=== PATIENT | male | born 1985 ===

== ENCOUNTER 2016-11-23 23:15 | Emergency (ER) | payer SELFPAY ==
[2016-11-23 23:20] VITALS: BMI 29.9
--- NOTE | 2016-11-23 23:34 | ED PDOC ---
Arrival/HPI - General Chief Complaint: GI Problem Time Seen by Provider: 11/23/16 23:29 Historian: Patient - History of Present Illness Narrative History of Present Illness (Text): 11/23/16 23:30 31 y/o male, pmh including chronic gastritis, nkda, c/o epigastric abdominal pain with nausea and vomiting x 2 hours. Pt. stated that he had 6 cans of beer with liquor tonight, had chicken parmesan at the same time, started to have indigestion, nausea and vomiting, no chest pain or shortness of breath, no diarrhea, no lower abdominal or periumbilical pain, no dizziness, no urinary symptoms, no abdominal surgical history, no flank pain, no other medical or psychological complaints. Past Medical History - Provider Review Nursing Documentation Reviewed: Yes - Psychiatric Hx Substance Use: Yes (quit 2 years ago) Family/Social History - Physician Review Nursing Documentation Reviewed: Yes Family/Social History: Unknown Family HX Smoking Status: Light Smoker < 10 Cigarettes Daily Hx Alcohol Use: Yes Frequency of alcohol use: Daily Hx Substance Use: Yes (quit 2 years ago) Substance used: cocaine, marijuana Allergies/Home Meds Allergies/Adverse Reactions: Allergies No Known Allergies Allergy (Verified 11/23/16 23:18) Review of Systems - Review of Systems Constitutional: absent: Fatigue, Fevers Eyes: absent: Vision Changes ENT: absent: Hearing Changes Respiratory: absent: Cough Cardiovascular: absent: Chest Pain Gastrointestinal: Abdominal Pain, Nausea, Vomiting. absent: Diarrhea Genitourinary Male: absent: Dysuria Musculoskeletal: absent: Arthralgias Skin: absent: Rash, Pruritis, Skin Lesions, Laceration, Abscess, Ulcer, Cellulitis Neurological: absent: Headache, Dizziness, Focal Weakness, Gait Changes, Speech Changes, Facial Droop, Disequilibrium, Seizure Endocrine: absent: Diaphoresis, Polyuria Hemo/Lymphatic: absent: Adenopathy, Easy Bleeding Psychiatric: absent: Anxiety, Depression Physical Exam Vital Signs Reviewed: Yes Vital Signs Temp Pulse Resp BP Pulse Ox 11/24/16 01:22 95 H 16 98 11/24/16 01:20 98.0 F 95 H 16 118/94 H 98 11/23/16 23:20 98.4 F 97 H 22 172/103 H 100 Temperature: Afebrile Blood Pressure: Hypertensive Pulse: Regular Respiratory Rate: Normal Appearance: Positive for: Well-Appearing, Non-Toxic, Uncomfortable Pain Distress: Moderate Mental Status: Positive for: Alert and Oriented X 3 - Systems Exam Head: Present: Atraumatic, Normocephalic Pupils: Present: PERRL Extroacular Muscles: Present: EOMI Conjunctiva: Present: Normal Mouth: Present: Moist Mucous Membranes Neck: Present: Normal Range of Motion Respiratory/Chest: Present: Clear to Auscultation, Good Air Exchange. No: Respiratory Distress, Accessory Muscle Use Cardiovascular: Present: Regular Rate and Rhythm, Normal S1, S2. No: Murmurs Abdomen: Present: Tenderness (+epigastric tenderness, no cva tenderness. ), Normal Bowel Sounds. No: Distention, Peritoneal Signs, Rebound, Guarding Back: Present: Normal Inspection. No: CVA Tenderness Upper Extremity: Present: Normal Inspection. No: Cyanosis, Edema Lower Extremity: Present: Normal Inspection. No: Edema Neurological: Present: GCS=15, Speech Normal, Motor Func Grossly Intact, Gait Normal, Memory Normal Skin: Present: Warm, Dry, Normal Color. No: Rashes Psychiatric: Present: Alert, Oriented x 3, Normal Insight, Normal Concentration Medical Decision Making ED Course and Treatment: 11/23/16 23:39 -labs/ua/lipase -IVF/pepcid/zofran -gallbladder sonogram -observe and reassess 11/24/16 00:49 -Sonogram show no cholecystitis but there is fatty liver, discussed with the patient about proper eating habits and avoid drinking alcohol. -Labs are non-significant except K+3.3, elevated LFTs. I ordered potassium chloride 20meq and advised eat more bananas. -Pain completely resolved with the IVF/pepcid and zofran, likely gastritis due to the alcohol, I ordered protonix 40meq po for the patient so this will get him through the morning. -Discharge home with prilosec, avoid drinking alcohol and avoid eating fatty food, follow up with the GI and PMD within 2 days for follow up abdominal sonogram for your fatty liver and possible upper endoscopy for your gastritis, return to the ER for any new or worsening signs or symptoms. - Lab Interpretations Lab Results: 11/23/16 23:47 11/23/16 23:47 Lab Results 11/24/16 00:24: Urine Color Yellow, Urine Appearance Sl cloudy, Urine pH 6.0, Ur Specific Gray 1.025, Urine Protein Trace H, Urine Glucose (UA) Negative, Urine Ketones Negative, Urine Blood Small H, Urine Nitrate Negative, Urine Bilirubin Negative, Urine Urobilinogen 0.2, Ur Leukocyte Esterase Negative, Urine RBC 1 - 3, Urine WBC 0 - 2, Ur Epithelial Cells 0 - 2 11/23/16 23:47: WBC 7.3, RBC 4.95, Hgb 15.1, Hct 43.5, MCV 87.9, MCH 30.5, MCHC 34.7, RDW 12.8, Plt Count 201, MPV 9.6, Gran % 48.3 L, Lymph % (Auto) 39.2 H, Brooks % (Auto) 7.5 H, Eos % (Auto) 3.8, Baso % (Auto) 1.2, Gran # 3.52, Lymph # 2.9, Brooks # 0.6, Eos # 0.3, Baso # 0.09, Sodium 139, Potassium 3.3 L, Chloride 100, Carbon Dioxide 28, Anion Gap 14, BUN 15, Creatinine 0.9, Est GFR ( Amer) > 60, Est GFR (Non-Af Amer) > 60, Random Glucose 136 H, Calcium 9.2, Total Bilirubin 0.6, AST 69 H, ALT 113 H, Alkaline Phosphatase 83, Total Protein 8.1, Albumin 4.5, Globulin 3.7, Albumin/Globulin Ratio 1.2, Lipase 61, Influenza Typ A,B (EIA) Negative for flu a/b I have reviewed the lab results: Yes Interpretation: Abnormal lab values (K+3.3, elevated LFTs) - RAD Interpretation Radiology Orders: 11/23/16 23:34 GALLBLADDER & PANCREAS [US] Stat FINDINGS: Liver: Enlarged, 22.9 cm. Fatty infiltration. No mass. No intrahepatic ductal dilatation. Gallbladder: No gallstones. No wall thickening. No pericholecystic fluid. No sonographic Meyers's sign. Common bile duct: No dilatation. No stones. Pancreas: Obscured by overlying bowel gas. Right kidney: Normal echogenicity. No hydronephrosis. IMPRESSION: 1. No acute findings. 2. Non-acute findings are described above. Thank you for allowing us to participate in the care of your patient. Dictated and Authenticated by: Victor M Lowe MD 11/24/2016 12:05 AM Eastern Time ([place] & [place]) Department Sales Manager: Radiologist - Medication Orders Current Medication Orders: Discontinued Medications Famotidine (Pepcid) 20 mg IVP STAT STA Stop: 11/23/16 23:35 Last Admin: 11/23/16 23:53 Dose: 20 MG IVP Administration Document 11/23/16 23:53 CAST (Rec: 11/23/16 23:[id number] Charges for Administration # of IVP Administrations 1 Ondansetron HCl (Zofran Inj) 4 mg IVP STAT STA Stop: 11/23/16 23:35 Last Admin: 11/23/16 23:52 Dose: 4 MG IVP Administration Document 11/23/16 23:52 CAST (Rec: 11/23/16 23:52 [email or web address] [id number]) Charges for Administration # of IVP Administrations 1 Pantoprazole Sodium (Protonix Ec Tab) 40 mg PO STAT STA Stop: 11/24/16 00:48 Last Admin: 11/24/16 01:22 Dose: 40 MG Potassium Chloride (K-Dur 20 Meq Er Tab) 20 meq PO STAT STA Stop: 11/24/16 00:37 Last Admin: 11/24/16 01:22 Dose: 20 MEQ - PA / SAFETY INSPECTOR / Resident Statement /DO has reviewed & agrees with the documentation as recorded. Disposition/Present on Arrival - Present on Arrival Any Indicators Present on Arrival: No History of DVT/PE: No History of Uncontrolled Diabetes: No Urinary Catheter: No History of Decub. Ulcer: No History Surgical Site Infection Following: None - Disposition Have Diagnosis and Disposition been Completed?: Yes Diagnosis: Fatty liver, Gastritis, Hypokalemia Disposition: HOME/ ROUTINE Disposition Time: 00:51 Patient Plan: Discharge Condition: IMPROVED Discharge Instructions (ExitCare): Gastritis (ED) Print Language: CZECH Additional Instructions: Discharge home with prilosec, avoid drinking alcohol and avoid eating fatty food , follow up with the GI and PMD within 2 days for follow up abdominal sonogram for your fatty liver and possible upper endoscopy for your gastritis, return to the ER for any new or worsening signs or symptoms. Prescriptions: Omeprazole Magnesium [Prilosec Otc] 20 mg PO DAILY #15 tcp Referrals: Dave MYERS,MD Sandra [Medical Doctor] - [place] [facility] [place] [facility] [place] - Follow up with primary Forms: WORK NOTE
[2016-11-24 00:05] LABS: ADD MANUAL DIFF? NO
--- NOTE | 2016-11-24 00:05 | US ---
EXAM: US Abdomen Limited, Right Upper Quadrant. CLINICAL HISTORY: 31 years old, male; Pain; Abdominal pain; Generalized; Additional info: Epigastric pain TECHNIQUE: Real-time ultrasound of the right upper quadrant with image documentation. COMPARISON: No relevant prior studies available. FINDINGS: Liver: Enlarged, 22.9 cm. Fatty infiltration. No mass. No intrahepatic ductal dilatation. Gallbladder: No gallstones. No wall thickening. No pericholecystic fluid. No sonographic Meyers's sign. Common bile duct: No dilatation. No stones. Pancreas: Obscured by overlying bowel gas. Right kidney: Normal echogenicity. No hydronephrosis. IMPRESSION: 1.No acute findings. 2.Non-acute findings are described above.
[2016-11-24 00:15] LABS: BASO # 0.09 K/mm3 (0.0-2.0); BASO % 1.2 % (0.0-3.0); EOS # 0.3 (0.0-0.7); EOS % 3.8 % (1.5-5.0); GRAN # 3.52 (1.4-6.5); GRAN % 48.3 % (50.0-68.0); HEMATOCRIT 43.5 % (42.0-52.0); LYMPH # 2.9 (1.2-3.4); LYMPH % 39.2 % (22.0-35.0); MEAN CELL VOLUME 87.9 fL (80.0-105.0); MEAN CORPUSCULAR HEMOGLOBIN 30.5 pg (25.0-35.0); MEAN CORPUSCULAR HGB CONC 34.7 g/dl (31.0-37.0); MEAN PLATELET VOLUME 9.6 fl (7.0-11.0); MONO # 0.6 (0.1-0.6); MONO % 7.5 % (1.0-6.0); PLATELET COUNT 201 10^3/uL (120.0-450.0); RED CELL DISTRIBUTION WIDTH 12.8 % (11.5-14.5); WHITE BLOOD COUNT 7.3 10^3/ul (4.5-11.0)
[2016-11-24 00:22] LABS: ALB/GLOB RATIO 1.2 (1.1-1.8); ALKALINE PHOSPHATASE 83 U/L (38-133); ALT/SGPT 113 U/L (7-56); AST/SGOT 69 U/L (15-59); BILIRUBIN,TOTAL 0.6 mg/dL (0.2-1.3); BLOOD UREA NITROGEN 15 mg/dL (7-21); CALCIUM 9.2 mg/dL (8.4-10.5); CARBON DIOXIDE 28 mmol/L (21-33); CHLORIDE 100 mmol/L (98-107); GFR AFRICAN-AMERICAN > 60; GLUCOSE,RANDOM 136 mg/dL (70-110); LIPASE 61 U/L (23-300); POTASSIUM 3.3 mmol/L (3.6-5.0); SODIUM 139 mmol/L (132-148); TOTAL PROTEIN 8.1 g/dL (5.8-8.3)
[2016-11-24] MEDS ORDERED: Potassium Chloride 20 mEq ER Tab PO STA (00:36)
[2016-11-24] MEDS ORDERED: Pantoprazole 40 mg EC Tab PO STA (00:47)
[2016-11-24 00:48] LABS: URINE BILIRUBIN NEGATIVE (NEGATIVE); URINE BLOOD SMALL (NEGATIVE); URINE GLUCOSE (UA) NEGATIVE (NEGATIVE); URINE KETONE NEGATIVE (NEGATIVE); URINE LEUKOCYTE ESTERASE NEGATIVE Leu/uL (NEGATIVE); URINE PROTEIN TRACE mg/dL (<30 mg/dL); URINE UROBILINOGEN 0.2 E.U./dL (<1 E.U./dL)
[2016-11-24 00:56] LABS: URINE APPEARANCE SL CLOUDY (CLEAR); URINE COLOR YELLOW (YELLOW)
[2016-11-24 00:59] LABS: URINE EPITHELIAL CELLS 0 - 2 /hpf (0-5); URINE WBC 0 - 2 /hpf (0-6)
[2016-11-24 01:22] VITALS: BP 118/94; PULSE 95; RESP 16; TEMP 98; O2SAT 98
== END 2016-11-24 01:22 | disposition home or self-care (01) ==
LOC: ED 23:15 → MERGE 23:15 → ED 11-24 01:22
DX: K76.0 Fatty (change of) liver, not elsewhere classified (principal); K29.70 Gastritis, unspecified, without bleeding; E87.6 Hypokalemia; F17.210 Nicotine dependence, cigarettes, uncomplicated
CPT/HCPCS: 76705; 80053; 81001; 83690; 85025; 87804; 96374; 96375; 99283; J2405

== ENCOUNTER 2017-10-08 12:57 | Emergency (ER) | payer OTHER ==
[2017-10-08 12:57] VITALS: BMI 29.9
[2017-10-08 13:28] VITALS: TEMP 99; O2SAT 96
--- NOTE | 2017-10-08 13:43 | ED PDOC ---
Arrival/HPI - General Historian: Patient - History of Present Illness Time/Duration: Other (<24 hours) - General Chief Complaint: Abdominal Pain Time Seen by Provider: 10/08/17 13:19 - History of Present Illness Narrative History of Present Illness (Text): 10/08/17 13:43 CC: vomiting and diarrhea 32 M presents with vomiting and diarrhea this morning. Patient states he still drinks a lot and was cooking pork cutlet and may not have cooked it well. Patient states he tried to hold soup down this morning and wasn't able to eat more. Patient was at work today. Patient states he's thirsty, midepigastric and right upper quadrant pain, diarrhea, vomiting. no fever, chills. PMH: chronic gastritis, nkda, c/o epigastric abdominal pain with nausea and vomiting x 2 hours Family/Social History: Unknown Family HX Smoking Status: Light Smoker < 10 Cigarettes Daily Hx Alcohol Use: Yes Frequency of alcohol use: Daily Hx Substance Use: Yes (quit 2 years ago) Substance used: cocaine, marijuana (Eng,Carolyn) Past Medical History - Infectious Disease Hx of Infectious Diseases: None - Gastrointestinal Hx Gastritis: Yes - Psychiatric Hx Substance Use: Yes (quit 2 years ago) - Anesthesia Hx Anesthesia: No Family/Social History - Physician Review Nursing Documentation Reviewed: Yes Family/Social History: Unknown Family HX Smoking Status: Light Smoker < 10 Cigarettes Daily Hx Alcohol Use: Yes Frequency of alcohol use: Daily Hx Substance Use: Yes (quit 2 years ago) Substance used: cocaine, marijuana Allergies/Home Meds Allergies/Adverse Reactions: Allergies No Known Allergies Allergy (Verified 10/08/17 13:25) Home Medications: Home Meds Medication Instructions Recorded Confirmed No Known Home Med 10/08/17 10/08/17 Review of Systems - Physician Review All systems were reviewed & negative as marked: Yes - Review of Systems Constitutional: absent: Fatigue, Weight Change, Fevers Eyes: Normal. absent: Vision Changes, Photophobia, Eye Pain ENT: Normal. absent: Hearing Changes, Tinnitus, TMJ Pain Respiratory: Normal. absent: SOB, Cough, Sputum Cardiovascular: absent: Chest Pain, Palpitations, Edema, Syncope Gastrointestinal: Abdominal Pain, Stool Changes, Diarrhea, Nausea, Vomiting, Appetite Changes. absent: Constipation, Hematochezia, Hematemesis, Anorexia, Food Intolerance Genitourinary Male: absent: Dysuria, Frequency, Hematuria Musculoskeletal: absent: Arthralgias, Back Pain, Neck Pain Skin: absent: Rash, Pruritis, Skin Lesions Neurological: absent: Headache, Dizziness, Focal Weakness Endocrine: absent: Diaphoresis, Polyuria, Polydipsia Hemo/Lymphatic: absent: Adenopathy, Easy Bleeding, Easy Bruising Psychiatric: absent: Anxiety, Depression, Suicidal Ideation Physical Exam Temperature: Afebrile Blood Pressure: Hypertensive Pulse: Tachycardic Respiratory Rate: Normal Appearance: Positive for: Comfortable Pain Distress: Mild Mental Status: Positive for: Alert and Oriented X 3 - Systems Exam Head: Present: Atraumatic, Normocephalic Pupils: Present: PERRL Extroacular Muscles: Present: EOMI Conjunctiva: Present: Normal Mouth: Present: Moist Mucous Membranes Pharnyx: Present: ERYTHEMA Neck: Present: Trachea Midline. No: JVD Respiratory/Chest: Present: Clear to Auscultation, Good Air Exchange. No: Respiratory Distress Cardiovascular: Present: Regular Rate and Rhythm, Normal S1, S2. No: Murmurs Abdomen: Present: Normal Bowel Sounds. No: Tenderness, Distention Upper Extremity: Present: Normal Inspection, Normal ROM, NORMAL PULSES, Capillary Refill < 2s. No: Edema Lower Extremity: Present: Normal Inspection, NORMAL PULSES, Normal ROM, Capillary Refill < 2 s. No: Edema Neurological: Present: GCS=15, CN II-XII Intact, Speech Normal, Motor Func Grossly Intact Psychiatric: Present: Alert, Oriented x 3, Normal Insight, Normal Concentration Vital Signs Temp Pulse Resp BP Pulse Ox 10/08/17 16:58 86 18 152/91 H 96 10/08/17 15:21 94 H 18 156/100 H 96 10/08/17 14:52 100 H 16 96 10/08/17 13:20 99 F 110 H 20 167/119 H 96 Medical Decision Making - Lab Interpretations I have reviewed the lab results: Yes Interpretation: Abnormal lab values ED Course and Treatment: 10/08/17 18:15 cbc cmp lipase abdominal US (Carolyn Knight) Patient Seen With Resident: In agreement with resident note which contains more details about the patient. Patient was seen and evaluated with resident. Came up with plan and treatment together. 32 y/o M p/w abdominal pain, vomiting after alcohol use last night. RUQ tenderness on exam. US unremarkable. (Emile Cruz T) - Lab Interpretations Lab Results: 10/08/17 14:00 10/08/17 14:00 Lab Results 10/08/17 14:00: Sodium 142, Potassium 4.0, Chloride 105, Carbon Dioxide 23, Anion Gap 19, BUN 21, Creatinine 1.1, Est GFR ( Amer) > 60, Est GFR (Non- Af Amer) > 60, Random Glucose 125 H, Calcium 9.6, Total Bilirubin 0.7, AST 102 H , ALT 147 H, Alkaline Phosphatase 82, Total Protein 8.1, Albumin 4.9 H, Globulin 3.2, Albumin/Globulin Ratio 1.5, Lipase 55 10/08/17 14:00: WBC 7.4, RBC 5.29, Hgb 16.2, Hct 46.7, MCV 88.3, MCH 30.6, MCHC 34.7, RDW 12.6, Plt Count 159, MPV 9.7, Gran % 84.7 H, Lymph % (Auto) 9.8 L, Atkinson % (Auto) 4.7, Eos % (Auto) 0.7 L, Baso % (Auto) 0.1, Gran # 6.25, Lymph # ( Auto) 0.7 L, Atkinson # (Auto) 0.4, Eos # (Auto) 0.1, Baso # (Auto) 0.01 elevated liver enzymes (Eng,Carolyn) - RAD Interpretation Radiology Orders: 10/08/17 15:03 ABDOMEN COMPLETE [US] Urgent - Medication Orders Current Medication Orders: Discontinued Medications Al Hydrox/Mg Hydrox/Simethicone (Maalox Plus 30 Ml) 30 ml PO STAT STA Stop: 10/08/17 13:47 Last Admin: 10/08/17 15:24 Dose: 30 ml Famotidine (Pepcid) 20 mg IVP STAT STA Stop: 10/08/17 13:47 Last Admin: 10/08/17 15:24 Dose: 20 mg IVP Administration Document 10/08/17 15:24 HI (Rec: 10/08/17 17:24 [id number]) Charges for Administration # of IVP Administrations 1 Sodium Chloride (Sodium Chloride 0.9%) 1,000 mls @ 999 mls/hr IV .Q1H1M STA Stop: 10/08/17 14:36 Last Admin: 10/08/17 14:04 Dose: 999 mls/hr eMAR Start Stop Document 10/08/17 14:04 HI (Rec: 10/08/17 14:53 [id number]) Intravenous Solution Start Date 10/08/17 Start Time 14:04 Ondansetron HCl (Zofran Inj) 8 mg IVP STAT STA Stop: 10/08/17 13:38 Last Admin: 10/08/17 14:04 Dose: 8 mg IVP Administration Document 10/08/17 14:04 HI (Rec: 10/08/17 14:53 [id number]) Charges for Administration # of IVP Administrations 1 Disposition/Present on Arrival - Present on Arrival Any Indicators Present on Arrival: No History of DVT/PE: No History of Uncontrolled Diabetes: No Urinary Catheter: No History of Decub. Ulcer: No History Surgical Site Infection Following: None - Disposition Have Diagnosis and Disposition been Completed?: Yes Disposition Time: 18:17 Patient Plan: Discharge - Disposition Diagnosis: Alcohol use, Gastroenteritis and colitis, viral Disposition: HOME/ ROUTINE Condition: IMPROVED Additional Instructions: follow up with primary care doctor in one week return to emergency room if abdominal pain, vomiting, nausea continue. decrease alcohol intake ultrasound shows hepatomegaly likely due to alcohol use stay hydrated Referrals: PCP,NO [Primary Care Provider] - Follow up with primary Forms: [facility] (Lux[place]ish), WORK NOTE
[2017-10-08] MEDS: Sodium Chloride 0.9% 1,000 ML IV STA (14:04)
[2017-10-08 14:12] LABS: BASO # 0.01 K/mm3 (0.0-2.0); BASO % 0.1 % (0.0-3.0); EOS # 0.1 (0.0-0.7); EOS % 0.7 % (1.5-5.0); GRAN # 6.25 (1.4-6.5); GRAN % 84.7 % (50.0-68.0); HEMOGLOBIN 16.2 g/dL (14.0-18.0); LYMPH # 0.7 (1.2-3.4); LYMPH % 9.8 % (22.0-35.0); MEAN CELL VOLUME 88.3 fl (80.0-105.0); MEAN CORPUSCULAR HEMOGLOBIN 30.6 pg (25.0-35.0); MEAN CORPUSCULAR HGB CONC 34.7 g/dl (31.0-37.0); MEAN PLATELET VOLUME 9.7 fl (7.0-11.0); MONO # 0.4 (0.1-0.6); MONO % 4.7 % (1.0-6.0); RBC 5.29 10^6/uL (3.5-6.1); RED CELL DISTRIBUTION WIDTH 12.6 % (11.5-14.5); WHITE BLOOD COUNT 7.4 10^3/ul (4.5-11.0)
[2017-10-08 14:19] LABS: ALB/GLOB RATIO 1.5 (1.1-1.8); ALBUMIN 4.9 g/dL (3.0-4.8); ALT/SGPT 147 U/L (7-56); AST/SGOT 102 U/L (17-59); BLOOD UREA NITROGEN 21 mg/dL (7-21); CALCIUM 9.6 mg/dL (8.4-10.5); GFR AFRICAN-AMERICAN > 60; GFR NON-AFRICAN AMERICAN > 60; LIPASE 55 U/L (23-300)
[2017-10-08 15:22] VITALS: RESP 18
[2017-10-08] MEDS: Alum-Mag Hydrox-Simethicone Susp (30 mL) PO STA (15:24)
--- NOTE | 2017-10-08 16:28 | US ---
HISTORY: Right upper quadrant pain, elevated LFTs. COMPARISON: 11/23/2016 [place] TECHNIQUE: Sonographic evaluation of the abdomen. FINDINGS: LIVER: Hepatomegaly, precise measurements of the liver difficult based on size although similar to the prior examination. Hepatopedal blood flow. Fatty infiltration manifest ultrasonographically as increased echogenicity of the liver parenchyma. No mass. No intrahepatic bile duct dilatation. GALLBLADDER: Unremarkable. No gallstones. COMMON BILE DUCT: Measures 5.9 mm. No stones. No dilatation. PANCREAS: Unremarkable, as visualized. RIGHT KIDNEY: Measures 4.8 x 11.9cm. Normal echogenicity. No calculus, mass, or hydronephrosis. LEFT KIDNEY: Measures 5.8 x 11.7cm. Normal echogenicity. No calculus, mass, or hydronephrosis. SPLEEN: 4.5 x 13.2 cm. AORTA: No aneurysmal dilatation. IVC: Unremarkable. OTHER FINDINGS: None. IMPRESSION: Hepatosplenomegaly. No acute findings. No appreciable interval change compared to the prior study.
[2017-10-08 16:59] VITALS: BP 152/91; PULSE 86
== END 2017-10-08 18:22 | disposition home or self-care (01) ==
LOC: ED 12:57
DX: A08.4 Viral intestinal infection, unspecified (principal); F10.10 Alcohol abuse, uncomplicated; Y90.9 Presence of alcohol in blood, level not specified